=== PATIENT | female | born 1930 | race African-American/Black ===

== ENCOUNTER 2020-12-27 09:04 | Inpatient (IN) | payer MEDICARE ==
[2020-12-27] MEDS ORDERED: Iopamidol-370 76% 500 ML 1 ML ONE (10:42)
[2020-12-27 10:48] LABS: #Lymphocytes 2.2 thou/uL (1.20-3.40); #Monocytes 0.4 thou/uL (0.11-0.59); #Neutrophils 3.6 thou/uL (1.40-6.50); %Basophils 0.3 % (0.0-1.0); %Eosinophils 0.5 % (0.0-10.0); %Lymphocytes 34.8 % (21.0-51.0); %Monocytes 6.2 % (0.0-10.0); %Neutrophils 58.2 % (42.0-75.0); Hemoglobin 12.6 g/dL (12.0-16.0); Mean Corpuscular HGB CONC 31.9 g/dL (32.0-36.0); Mean Corpuscular Volume 93.9 fL (78.0-98.0); Mean Platelet Volume 8.6 fL (7.4-10.4); Platelet Count 207 thou/uL (130-400); RBC Distribution Width 11.8 % (11.5-14.5); Red Blood Cell (RBC) Count 4.19 mill/uL (4.20-5.40); White Blood Cell (WBC) Count 6.2 thou/uL (4.8-10.8)
[2020-12-27 11:09] LABS: ALT (SGPT) 14 U/L (8-55); AST (SGOT) 24 U/L (5-34); Albumin 3.3 g/dL (3.4-4.8); Alkaline Phosphatase 78 U/L (40-110); Anion Gap 12 mmol/L (10-20); BUN (Urea Nitrogen) 31 mg/dL (9.8-20.1); Bilirubin, Total 0.9 mg/dL (0.2-1.2); Calc. Creatinine Clearance 0 mL/min (70-130); Calcium 11.9 mg/dL (7.8-10.44); Carbon Dioxide 34 mmol/L (23-31); Chloride 97 mmol/L (98-107); Globulin 3.7 g/dL (2.4-3.5); Glucose 94 mg/dL (83-110); Potassium 3.1 mmol/L (3.5-5.1); Sodium 140 mmol/L (136-145)
[2020-12-27 11:32] LABS: CKMB 0.5 ng/mL (0-6.6)
[2020-12-27] MEDS ORDERED: Potassium Chloride 20 MEQ/100 ML PREMIX BAG ONE (13:42)
[2020-12-27] MEDS ORDERED: Potassium Chloride 20 MEQ TAB ONE (13:43)
[2020-12-27 14:14] LABS: Magnesium 1.8 mg/dL (1.6-2.6); Phosphorus 2.7 mg/dL (2.3-4.7)
[2020-12-27 14:54] LABS: Anion Gap 14 mmol/L (10-20); BUN (Urea Nitrogen) 33 mg/dL (9.8-20.1); Calc. Creatinine Clearance 0 mL/min (70-130); Calcium 11.7 mg/dL (7.8-10.44); Carbon Dioxide 29 mmol/L (23-31); Chloride 99 mmol/L (98-107); Glucose 86 mg/dL (83-110); Potassium 3.2 mmol/L (3.5-5.1); Sodium 139 mmol/L (136-145)
[2020-12-27 15:08] LABS: CKMB 0.5 ng/mL (0-6.6)
[2020-12-27 19:49] LABS: Bacteria/HPF None Seen HPF (None Seen); Bilirubin Negative (Negative); Blood, Urine Negative (Negative); Clarity Clear (Clear); Glucose, Urine (Dipstick) Normal (Negative); Ketone, Urine Negative (Negative); Leukocyte 500 Leu/uL (Negative); Nitrite Negative (Negative); Protein, Urine (Dipstick) Negative (Neg-Trace); RBC/HPF 0-3 HPF (0-3); Specific Gravity, Urine 1.034 (1.002-1.036); Urobilinogen Normal mg/dL (Less than 2); WBC/HPF 21-50 HPF (0-3); pH, Urine 6.5 (5.0-9.0)
[2020-12-27 21:25] VITALS: BMI 19.9
[2020-12-27] MEDS ORDERED: Lactated Ringer's 1,000 ML IV SCH (21:30)
[2020-12-28 09:32] LABS: #Lymphocytes 1.9 thou/uL (1.20-3.40); #Monocytes 0.5 thou/uL (0.11-0.59); %Basophils 0.6 % (0.0-1.0); %Eosinophils 0.7 % (0.0-10.0); %Lymphocytes 29.5 % (21.0-51.0); %Monocytes 8.1 % (0.0-10.0); %Neutrophils 61.1 % (42.0-75.0); Hemoglobin 11.7 g/dL (12.0-16.0); Mean Corpuscular HGB CONC 32.5 g/dL (32.0-36.0); Mean Corpuscular Hemoglobin 30.4 pg (27.0-31.0); Mean Corpuscular Volume 93.6 fL (78.0-98.0); Mean Platelet Volume 8.9 fL (7.4-10.4); Platelet Count 197 thou/uL (130-400); RBC Distribution Width 11.8 % (11.5-14.5); Red Blood Cell (RBC) Count 3.86 mill/uL (4.20-5.40); White Blood Cell (WBC) Count 6.6 thou/uL (4.8-10.8)
[2020-12-28 09:51] LABS: Anion Gap 9 mmol/L (10-20); BUN (Urea Nitrogen) 24 mg/dL (9.8-20.1); Calc. Creatinine Clearance 33 mL/min (70-130); Calcium 11.3 mg/dL (7.8-10.44); Carbon Dioxide 31 mmol/L (23-31); Chloride 102 mmol/L (98-107); Glucose 106 mg/dL (83-110); Potassium 3.4 mmol/L (3.5-5.1); Sodium 139 mmol/L (136-145)
[2020-12-28 10:00] LABS: Troponin I 0.044 ng/mL (< 0.028)
[2020-12-28] MEDS ORDERED: Potassium Chloride 20 MEQ TAB PO SCH (10:30)
[2020-12-28 12:12] LABS: SARS-CoV-2 PCR by NAA Not Detected (NotDetected)
[2020-12-28] MEDS ORDERED: Calcitonin,Salmon,Synthetic 200 UNITS/ML MDV SC SCH (14:15)
[2020-12-28] MEDS ORDERED: Brinzolamide 1% Ophth SUSP 10 ml Bottle EA EYE SCH (15:00)
[2020-12-28] MEDS: Lactated Ringer's 1,000 ML IV SCH (15:39)
[2020-12-28] MEDS: Trospium 20 MG TAB PO SCH (20:28)
[2020-12-28] MEDS: Timolol 0.5% Ophth Soln 5 ml Bottle EA EYE SCH (20:29)
[2020-12-28] MEDS: Brinzolamide 1% Ophth SUSP 10 ml Bottle EA EYE SCH (20:30)
[2020-12-28] MEDS: Latanoprost 0.005% Ophth Soln 2.5 ml Bottle EA EYE SCH (20:30)
[2020-12-28] MEDS ORDERED: Non-Formulary Item 1 EACH (Bimatoprost [Lumigan] 5 ML Drops) EA EYE SCH (21:00)
[2020-12-29 04:55] LABS: #Lymphocytes 2.1 thou/uL (1.20-3.40); #Monocytes 0.6 thou/uL (0.11-0.59); #Neutrophils 5.3 thou/uL (1.40-6.50); %Basophils 0.4 % (0.0-1.0); %Eosinophils 0.3 % (0.0-10.0); %Monocytes 7.2 % (0.0-10.0); %Neutrophils 66.2 % (42.0-75.0); Hemoglobin 11.7 g/dL (12.0-16.0); Mean Corpuscular HGB CONC 34.4 g/dL (32.0-36.0); Mean Corpuscular Hemoglobin 31.9 pg (27.0-31.0); Mean Corpuscular Volume 92.7 fL (78.0-98.0); Mean Platelet Volume 8.9 fL (7.4-10.4); Platelet Count 189 thou/uL (130-400); RBC Distribution Width 11.8 % (11.5-14.5); Red Blood Cell (RBC) Count 3.67 mill/uL (4.20-5.40)
[2020-12-29 05:20] LABS: Anion Gap 10 mmol/L (10-20); BUN (Urea Nitrogen) 17 mg/dL (9.8-20.1); Calc. Creatinine Clearance 39 mL/min (70-130); Calcium 10.8 mg/dL (7.8-10.44); Carbon Dioxide 29 mmol/L (23-31); Chloride 104 mmol/L (98-107); Glucose 109 mg/dL (83-110); Potassium 4.2 mmol/L (3.5-5.1); Sodium 139 mmol/L (136-145)
[2020-12-29] MEDS ORDERED: Clopidogrel Bisulfate 75 MG TAB PO SCH (09:00)
[2020-12-29] MEDS ORDERED: Atorvastatin Calcium 40 MG TAB PO SCH (09:00)
[2020-12-29] MEDS: Lactated Ringer's 1,000 ML IV SCH ×2 (09:18→10:41)
[2020-12-29] MEDS: Trospium 20 MG TAB PO SCH ×2 (09:20→20:30)
[2020-12-29] MEDS: Timolol 0.5% Ophth Soln 5 ml Bottle EA EYE SCH ×2 (10:22→20:31)
[2020-12-29] MEDS: Brinzolamide 1% Ophth SUSP 10 ml Bottle EA EYE SCH ×2 (10:22→20:30)
[2020-12-29] MEDS ORDERED: Acetaminophen 325 MG TAB PO PRN (17:16)
[2020-12-29] MEDS: Latanoprost 0.005% Ophth Soln 2.5 ml Bottle EA EYE SCH (20:31)
[2020-12-29 20:39] VITALS: TEMP 98.2
[2020-12-29 21:36] VITALS: BP 108/57
[2020-12-30] MEDS ORDERED: FLU VACC QS2021-22(65YR UP)/PF 240 MCG/0.7 ML SYRINGE IM ONE (09:00)
[2020-12-30 14:16] LABS: A/G Ratio 0.9 (0.7-1.7); Alpha 1 0.3 g/dL (0.0-0.4); Alpha 2 0.8 g/dL (0.4-1.0); Gamma 1.5 g/dL (0.4-1.8); Globulin, Total 3.5 g/dL (2.2-3.9); M-Spike Not Observed g/dL (Not Observed)
== END 2020-12-29 20:55 | disposition home or self-care (01) | DRG 682 ==
LOC: ERS 09:04 → 2NO 16:28
PROVIDERS: ADMIT Internal Medicine; ATTEND Internal Medicine
DX: N17.9 Acute kidney failure, unspecified (principal); E43 Unspecified severe protein-calorie malnutrition; S32.010A Wedge compression fracture of first lumbar vertebra, initial encounter for closed fracture; Z68.1 Body mass index [BMI] 19.9 or less, adult; R00.1 Bradycardia, unspecified; I10 Essential (primary) hypertension; E83.52 Hypercalcemia; E05.90 Thyrotoxicosis, unspecified without thyrotoxic crisis or storm; E06.9 Thyroiditis, unspecified; E86.0 Dehydration; W19.XXXA Unspecified fall, initial encounter; H40.9 Unspecified glaucoma; Z79.02 Long term (current) use of antithrombotics/antiplatelets; Z79.899 Other long term (current) drug therapy; Z98.890 Other specified postprocedural states
CPT/HCPCS: 36415; 70450; 71045; 71260; 72125; 74177; 76536; 80048; 80053; 81003; 81015; 82306; 82553; 83735; 83970; 84100; 84165; 84439; 84443; 84484; 85025; 93005; J0630; J3480; J7120; Q9967; U0003; U0005